=== PATIENT | female | born 1950 | race Caucasian/White ===

== ENCOUNTER 2025-03-09 10:24 | Outpatient (REF) | payer MEDICARE, SELFPAY ==
--- OUTSIDE RECORDS SUMMARY | 2025-03-07 09:00 | XMS_ITS | Encounter Summary ---
Author Organization [email or web address] Address [address] [facility] [address] [place] [address] Care Team Providers Care Commissary Steward Name Role Phone Rene Butcher MD Primary Care Prov ider Encounter Details Date Type Department Care Team ([facility] Contact Info) Description 03/07/2025 9:00 AM EDT Telemedicine [facility] [address], [place] [phone] Rene Butcher MD [address] [place], [place] [phone] Social History Tobacco Use Types Packs/Day Years Used Date Smoking Tobacco: Never Smokeless Tobacco: Never Depression Answer Date Recorded Patient Health Questionnaire-9 Score 4 04/05/2024 Patient Health Questionnaire-9 Score 4 04/05/2024 Last PHQ-9: Questionnaire Data Not on file 1 06/05/2023 Housing Stability Answer Date Recorded What is your housing situation today? I have kelly victor 04/05/[address] you li ve. Do you have problems with any of the following? None of the above 04/05/2024 Food Insecurity Answer Date Recorded Within the past 12 months, y ou worried that your food would run out before you got money to buy more: Never True 04/05/2024 Within the past 12 months,th e food you bought just didn't last and you didn't have enough money to get more: Never True 04/2024 Transportation Answer Date Recorded In the past 12 months, has l ack of transportation kept you from medical appts, meetings, work or from getting things needed for daily living? No 04/05/2024 Utilities Answer Date Recorded In the past 12 months, has t he electric, gas, oil or water company threatened to shut off services in your home? No 04/05/2024 Depression Answer Date Recorded Patient Health Questionnaire-2 Score 4 04/05/2024 Internet Access Answer Date Recorded Internet Access Q1 Yes 04/05/2024 Internet Access Q2 Not on file 04/05/2024 Comments Unknown Sex and Gender Information Value Date Recorded Sex Assigned at Female 03/24/2022 10:29 AM EDT Legal Sex Female 10:29 AM EDT Gender Identity Female 03/24/2022 10:29 AM EDT Sexual Orientation Don't know 03/24/2022 10 :29 AM EDT documented as of this encounter Plan of Treatment Upcoming Encounters Date Type Department Care Team (Late st Contact Info) Description 03/13/2025 10:30 AM EDT Clinical Support [facility] [address] [place] [address] 03/14/2025 11:00 AM EDT Office Visit [facility] [address] [place] [address] Donnie Quevedo, DMD [address] [place] [address] 07/04/2025 2:00 PM EST Office Visit [facility] [address] [place] [address] Tarka, Merissa, OD [address] [place] [address] documented as of this encounter Visit Diagnoses Not on filedocumented in this encounter Additional Health Concerns Assessment Noted Time PHQ-9 Depression Total Score: 4 04/05/20 24 11:56 AM EST documented as of this encounter Care Teams Commissary Steward Relationship Specialty Start Date End Date Rene Butcher MD [address] [place] [address] PCP - General Internal Medicine 10/23/19 documented as of this encounter
--- NOTE | ~2025-03-09 | CT_ITS ---
EXAMINATION: CT HEAD WITHOUT IV CONTRAST HISTORY: Persistent headache after a fall more than 2 months ago.. TECHNIQUE: Unenhanced helical CT of the head was performed per standard departmental protocol. Coronal and sagittal reformats of the head were also evaluated. One or more of the following techniques was used for dose reduction: Automated exposure control, adjustment of the mA and/or kV according to patient size, use of iterative reconstruction technique. DLP: 657 mGy-cm COMPARISON: There are no prior studies available for comparison. FINDINGS: BRAIN: There is diffuse prominence of the ventricular system and cortical sulci, consistent with atrophy. Periventricular and subcortical white matter hypodensities are noted which are nonspecific, but often seen in the setting of small vessel ischemic disease. There is no mass effect or midline shift. No intra- or extra-axial fluid collections are identified. SINUSES: The visualized paranasal sinuses are clear. The mastoid air cells and middle ear cavities are well pneumatized. ORBITS: The visualized orbits are unremarkable. BONES/SOFT TISSUES: The extracranial soft tissues are unremarkable. The calvarium is intact. No suspicious lytic or sclerotic lesions. CT/CT head/brain wo IV con IMPRESSION: No evidence of intracranial hemorrhage. Electronically signed by: Francisco Javier Aguilar MD 03/09/2025 10:56 AM EDT
--- NOTE | ~2025-03-09 | XR_ITS ---
EXAMINATION: XR LUMBAR SPINE 2-3 VIEWS HISTORY: Low back pain after a fall. COMPARISON: There are no prior studies for comparison. FINDINGS: AP, lateral, and coned down views of the lumbar spine are submitted. The bones are osteopenic. Five nonrib-bearing lumbar vertebral bodies are identified, maintaining normal height and alignment without evidence of fracture or spondylolisthesis. There is mild degenerative disc disease with lateral spurring. The intervertebral disc spaces are maintained. The posterior elements are intact. There is calcification of the abdominal aorta. Incidental note is made of osteoarthritis of both hips. XR/XR lumbar spine 2-3V IMPRESSION: Osteopenia. Mild degenerative disc disease as described. Electronically signed by: Francisco Javier Aguilar MD 03/09/2025 11:07 AM EDT
--- OUTSIDE RECORDS SUMMARY | 2025-03-09 12:51 | XMS_ITS | Encounter Summary ---
Author Organization [employer] Address [address] [facility] [address] [place] [address] Care Team Providers Care Sports Broadcaster Name Role Phone Rene Butcher MD Primary Care Prov ider Reason for Visit * Reason Comments Med Refill Encounter Details Date Type Department Care Team ([facility] st Contact Info) Description 01/14/2025 Refill [facility] [address] [place] [address] Rene Butcher MD [address] [place], [place] [phone] Arthritis Social History Tobacco Use Types Packs/Day Years [...] Description 03/13/2025 10:30 AM EDT Clinical Support [facility] [address] [place] [address] 03/14/2025 11:00 AM EDT Office Visit [facility] [address] [place] [address] Donnie Quevedo, DMD [address] [place] [address] 07/04/2025 2:00 PM EST Office Visit [facility] [address] [place] [address] Tarka, Merissa, OD [address] [place] [address] documented as of this encounter Visit Diagnoses Diagnosis Arthritis Unspecified arthropathy, site unspecified documented in this encounter Additional Health Concerns Assessment Noted Time PHQ-9 Depression Total Score: 4 04/05/20 24 11:56 AM EST documented as of this encounter Care Teams Sports Broadcaster Relationship Specialty Start Date End Date Rene Butcher MD [address] [place] [address] PCP - General Internal Medicine 10/23/19 documented as of this encounter
--- OUTSIDE RECORDS SUMMARY | 2025-03-09 12:51 | XMS_ITS | Clinical Summary ---
Author Organization [employer] Address [address] [facility] [address] [place] [address] Care Team Providers [employer] Name Role Phone Rene Butcher MD Primary Care Prov ider Allergies Active Allergy Reactions Criticality Noted Date Comments Apple Juice Anaphylaxis High 10/09/2022 Ross Flavoring Agent (Non-Screening) Anaphylaxis High 12/30/2022 Medications * This document contains information received from the source organization and may not represent a complete record from that organization. Blood Pressure kit 1 kit Once per day. 1 kit 10/15/19 24 Active cholecalciferol VITAMIN D (Vitamin D-3) 50 MCG (1999 UT) tabletIndicatio ns:Gastroesopha geal reflux disease without esophagitis Take 1 tablet (50 mcg) by mouth in the morning. 90 tablet 2 04/05/20 24 025 Active cetirizine (ZyrTEC) 10 MG tabletIndicatio ns:Chronic rhinitis Take 1 tablet (10 mg) by mouth Once per day. 90 tablet 3 04/05/20 24 025 Active PARoxetine (Paxil) 40 MG tabletIndicatio ns:Recurrent major depressive disorder, in full remission (CMS/HCC) Take 1 tablet (40 mg) by mouth in the morning. 90 tablet 3 04/05/20 24 025 Active aspirin (Aspirin Low Dose) 81 MG EC tabletIndicatio ns:Gastroesopha geal reflux disease without esophagitis Take 1 tablet (81 mg) by mouth Once per day. 90 tablet 3 10/19/19 25 026 Active hydroCHLOROthia zide (HYDRODiuril) 25 MG tablet TAKE 1 TABLET BY MOUTH EVERY DAY 90 tablet 3 10/19/19 25 Active hydrOXYzine HCl (Atarax) 25 MG tabletIndicatio ns:Arthritis Take 1 tablet (25 mg) by mouth if needed in the morning, at noon, and at bedtime for anxiety. 90 tablet 3 10/19/19 25 Active acetaminophen (Tylenol 8 Hour) 650 MG ER tabletIndicatio ns:Arthritis Take 1 tablet (650 mg) by mouth every 8 (eight) hours if needed for mild pain. Do not crush, chew, or split.TAKE 1 TABLET BY MOUTH EVERY 8 HOURS IF NEEDED FOR MILD PAIN. DO NOT CRUSH,CHEW OR SPIT. 90 tablet 1 10/19/19 25 Active losartan (Cozaar) 100 MG tabletIndicatio ns:Other headache syndrome take 1 tablet by oral route 2 times every day 30 tablet 3 02/21/20 25 Active pantoprazole (ProtoNix) 40 MG EC tabletIndicatio ns:Gastroesopha geal reflux disease without esophagitis Take 1 tablet (40 mg) by mouth Once per day. Do not crush, chew, or split. 90 tablet 3 02/21/20 25 026 Active Blood Pressure Monitoring (Omron 10 Series BP Monitor) deviceIndicatio ns:Primary hypertension CHECK BLOOD PRESSURE DAILY 1 each 02/21/20 25 Active EPINEPHrine (Epipen) 0.3 MG/0.3ML injection syringe Inject 0.3 mL (0.3 mg) as directed 1 (one) time for 1 dose. use as directed for allergic reaction and then call 911 0.3 mL 12/31/19 025 Discontinued(T herapy completed) pantoprazole (ProtoNix) 40 MG EC tabletIndicatio ns:Gastroesopha geal reflux disease without esophagitis Take 1 tablet (40 mg) by mouth Once per day. Do not crush, chew, or split. 90 tablet 3 04/05/20 24 025 Discontinued(R eorder (will not trigger notification to Pharmacy)) pseudoephedrine (Sudafed) 30 MG tablet Take 1 tablet (30 mg) by mouth every 4 (four) hours if needed for congestion for up to 10 days. 30 tablet 08/18/19 25 025 Discontinued(T herapy completed) Blood Pressure Monitoring (Omron 10 Series BP Monitor) device CHECK BLOOD PRESSURE DAILY 1 each 08/23/19 025 Discontinued(R eorder (will not trigger notification to Pharmacy)) losartan (Cozaar) 50 MG tablet take 1 tablet by oral route 2 times every day 180 tablet 3 10/19/19 025 Discontinued(R eorder (will not trigger notification to Pharmacy)) Active Problems Problem Noted Date Diagnosed Date Morbid obesity (CMS/HCC) 04/05/2024 Gastroesophageal reflux disease without esophagi tis 04/05/2024 Assessment & Plan (04/05/2024 6:09 PM EST): Will restart pantoprazole, encouraged lifestyle modifications, follow up as needed, no warning signs Screening for colon cancer 04/02/2023 Assessment & Plan (04/02/2023 3:35 PM EST): Done 01/2017 due in 10 years Anxiety 03/17/2023 Assessment & Plan (10/15/2023 4:46 PM EDT): On paroxetine and hydroxyzine, no suicidal ideas, she will be traveling to [facility]] for 3 months and will call back for follow up Assessment & Plan (04/02/2023 6:11 PM EST): Much improved with increase of paroxetine and hydroxyzine as needed, no changes will be made, no suicidal/homicidal ideas Assessment & Plan (03/17/2023 4:24 PM EDT): Patient refers household family situations are causing her exacerbation, will increase paroxetine to 40mg and will provide hydroxyzine as needed, will also refer to , no suicidal/homicidal ideas Allergic reaction 12/30/2022 Assessment & Plan (12/30/2022 11:22 AM EDT): Patient with hx of apple allergies, had a peach yesterday and developed puffy eyes, itchy throat, denied shortness of breath. On examination no rash seen, not fatigue, speaking in full sentences, clear to auscultation bilaterally, will order benadryl/epipen and will refer to sole filler. Reviewed red flags to visit ER. Chronic rhinitis 08/11/2022 Assessment & Plan (08/11/2022 12:04 PM EDT): Cough bothering her in the morning, most likely post nasal drip, will order cetirizine, call back if worseing Primary hypertension 06/23/2022 Assessment & Plan (10/15/2023 4:44 PM EDT): Patient not monitoring her blood pressure, refers bp monitor is broken, will send a new one to [facility], continue low sodium diet, bp target <140/90 Assessment & Plan (06/23/2022 10:30 AM EST): Controlled, reinforced low sodium diet and exercsie as tolerated, continue on losartan and hydrochlorothiazide, will place new lab order Encounter for screening mamm ogram for malignant neoplasm of breast 06/23/2022 Assessment & Plan (06/23/2022 10:34 AM EST): Will order mammogram Tinea pedis of both feet 06/23/2022 Assessment & Plan (08/11/2022 12:03 PM EDT): Patient with bilateral toenail/intertoe infection, will provide clotrimazole, told to maintain area dry Menopause 06/23/2022 Assessment & Plan (06/23/2022 10:35 AM EST): Will place dexa scan order Encounters Date Type Department Care Team Description 03/08/2025 Telephone [facility] [address] [place] [address] Rene Butcher MD 03/07/2025 9:00 AM EDT Telemedicine [facility] [address] [place] [address] Rene Butcher MD 03/07/2025 Telephone [facility] [address] [place] [address] Rene Butcher MD chart prep 03/07/2025 Telephone [facility] [address] [place] [address] Rene Butcher MD 03/06/2025 Telephone [facility] [address] [place] [address] Rene Butcher MD 03/06/2025 Travel 03/03/2025 Telephone [facility] [address] [place] [address] Rene Butcher MD chart prep 03/01/2025 2:00 PM EDT Office Visit [facility] [address] [place] [address] Donnie Quevedo DMD Edentulism (Primary Dx) 02/21/2025 9:00 AM EDT Office Visit [facility] [address] [place] [address] Reese Rojas Edentulism (Primary Dx) 02/20/2025 11:30 AM EDT Office Visit [facility] [address] [place] [address] Jenny Rojas MD Acute cough (Primary Dx); Other headache syndrome; Dietary counseling; Exercise counseling; Class 1 obesity due to excess calories with serious comorbidity and body mass index (BMI) of 33.0 to 33.9 in adult; Acute midline low back pain without sciatica; Gastroesophageal reflux disease without esophagitis; Primary hypertension 02/20/2025 Travel 02/16/[address] [address] Rene Butcher MD Nurse Triage 01/14/2025 Refill [facility] [address] [place] [id number] Rene Butcher MD Arthritis from Last 3 Months Immunizations Immunization Administration Dates Next Due Influenza High-dose Quadriva lent Preservative Free 02/24/2022,01/27/2021,03/20/2020 Influenza injectable quadriv alent IIV4 with preservative 02/22/2018 Influenza, High Dose Seasona l, Preservative Free 01/27/2019,03/13/2016 Pfizer Covid-19 Vaccine 12+ 08/31/2020, Pneumococcal Conjugate PCV 13 02/22/2018 Pneumococcal Polysaccharide PPSV23 07/21/2016 Tdap 07/21/2016 Zoster, Recombinant 06/02/2022,12/30/2021 Social History Tobacco Use Types Packs/Day Years Used Date Smoking Tobacco: Never Smokeless Tobacco: Never Tobacco Cessation:Counseling Given: Not Answered Depression Answer Date Recorded Patient Health Questionnaire-9 [...] Don't know 03/24/2022 10 :29 AM EDT Last Filed Vital Signs Vital Sign Reading Time Taken Comments Blood Pressure 156/100 02/21/2025 9:09 AM EDT Pulse 78 02/21/2025 9:09 AM EDT Temperature 36.8 C (98.2 F) 02/20/2025 11:22 AM EDT Respiratory Rate 20 02/20/2025 11:22 AM EDT Oxygen Saturation 94% 02/20/2025 11:22 AM EDT Inhaled Oxygen Concentration - - Weight 77.1 kg (170 lb) 08/17/2024 3:23 PM EDT Height 152.4 cm (5') 04/05/2024 11:55 AM EST Body Mass Index 33.2 04/05/2024 11:55 AM EST Plan of Treatment Upcoming Encounters Date Type Department Care Team (Late st Contact Info) Description 03/13/2025 10:30 AM EDT Clinical Support [facility] [address] [place] [address] 03/14/2025 11:00 AM EDT Office Visit [facility] [address] [place] [address] Donnie Quevedo, DMD [address] [place] [address] 07/04/2025 2:00 PM EST Office Visit [facility] [address] [place] [address] TarkaMerissa, OD [address] [place] [address] Health Maintenance Due Date Last Done Comments CT Colonography 1950 Dental Prophylaxis 1950 Dental X-Ray: Bitewings 1950 FIT DNA/Cologuard 1950 FIT 1950 FOBT 1950 Sigmoidoscopy 1950 Hepatitis C Screening 1969 Mammogram 1991 COVID-19 Vaccine ( season) 2025 02/24/2022, 08/31/2020, 08/10/2020 Influenza Vaccine (#1) 2025 2, 01/27/2021, 03/20/2020, Additional history exists Alcohol/Substance Use Screening 04/05/2025 04/05/2024 Depression Screening 04/05/2025 04/05/2024, 04/05/20 24 SDOH Screening 04/05/2025 04/05/2024 Dental Oral Exam 08/22/2025 02/21/2025 RSV Patients and Patients Aged 60 years or older (1 - 1-dose 75+ series) 2026 Tobacco Screening 03/01/2026 03/01/2025 DTaP/Tdap/Td Vaccines (3 - Td or Tdap) 07/21/2026 07/21/2016, 10/24/2010 Lipid Panel 12/30/2026 12/30/2021, 03/18/2021 Colonoscopy 02/10/2027 02/10/2017 Colorectal Cancer Screening 02/10/2027 Dental X-Ray: Full Mouth 02/23/2028 02/21/2025 Pneumococcal Vaccine: 50+ Years Completed 02/22/2018, 07/21/2016 Zoster Vaccines Completed 06/02/2022, 12/30/2021 HIB Vaccines Aged Out No longer eligi ble based on patient's age to complete this topic HPV Vaccines Aged Out No longer eligi ble based on patient's age to complete this topic Hepatitis A Vaccines Aged Out No long er eligible based on patient's age to complete this topic Hepatitis B Vaccines Aged Out No long er eligible based on patient's age to complete this topic IPV Vaccines Aged Out No longer eligi ble based on patient's age to complete this topic Meningococcal B Vaccine Aged Out No l onger eligible based on patient's age to complete this topic Meningococcal Vaccine Aged Out No yoandy kori eligible based on patient's age to complete this topic RSV under 20 months Aged Out No longe r eligible based on patient's age to complete this topic Rotavirus Vaccines Aged Out No longer eligible based on patient's age to complete this topic Procedures Procedure Name Priority Date/Time Associated Diagnosis Comments XR LUMBAR SPINE 2-3 VIEWS Routine 03/09/2025 10:45 AM EDT Acute midline low back pain without sciatica CT HEAD WO CONTRAST Urgent 03/09/2025 1 0:39 AM EDT Other headache syndrome DENTURE IMPRESSION Routine 03/01/2025 2: 00 PM EDT Edentulism PANORAMIC RADIOGRAPHIC IMAGE Routine 02/21/2025 9:00 AM EDT Edentulism COMPREHENSIVE ORAL EVALUATION - NEW OR ESTABLISHED PATIENT Routine 02/21/2025 9:00 AM EDT Edentulism Jorge A COMPLETE DENTURE Routine 02/21/2025 12:00 AM EDT Max COMPLETE DENTURE Routine 02/21/2025 12:00 AM EDT POCT RAPID COVID ANTIGEN Routine 02/20/2025 1:53 PM EDT Acute cough POCT INFLUENZA A Routine 02/20/2025 1:52 PM EDT Acute cough POCT INFLUENZA B Routine 02/20/2025 1:51 PM EDT Acute cough POCT RAPID STREP A Routine 02/20/2025 1: 50 PM EDT Acute cough LIPID PANEL, STANDARD Routine 12/30/2021 9:11 AM EDT HM COLONOSCOPY Routine 02/10/2017 9:53 AM EDT from Last 3 Months or Most Recently Relevant to Health Maintenance Results * XR Lumbar Spine 2-3 Views (03/09/2025 10:45 AM EDT) Anatomical Region Laterality Modality Spine, L-spine Radiographic Laureen ging 03/09/2025 10:4 5 AM EDT Narrative 03/09/2025 11:10 AM EDT [place] [address] XRay Report Signed Patient: Negar Moreno MR#: [id number] : 1950 Acct:[id number] Age/Sex: 75 / F ADM Date: 03/09/25 Loc: HO.CT Attending Dr: Jenny Rojas MD Ordering Physician: Jenny Rojas MD Date of Service: 03/09/25 Procedure(s): XR lumbar spine 2-3V Accession Number(s): [id number] cc: Jenny Rojas MD Reason for Exam: Low back pain after a fall. EXAMINATION: XR LUMBAR SPINE 2-3 VIEWS HISTORY: Low back pain after a fall. COMPARISON: There are no prior studies for comparison. FINDINGS: AP, lateral, and coned down views of the lumbar spine are submitted. The bones are osteopenic. Five nonrib-bearing lumbar vertebral bodies are identified, maintaining normal height and alignment without evidence of fracture or spondylolisthesis. There is mild degenerative disc disease with lateral spurring. The intervertebral disc spaces are maintained. The posterior elements are intact. There is calcification of the abdominal aorta. Incidental note is made of osteoarthritis of both hips. XR/XR lumbar spine 2-3V IMPRESSION: Osteopenia. Mild degenerative disc disease as described. Electronically signed by: Francisco Javier Aguilar MD 03/09/2025 11:07 AM EDT RP Dictated By: Francisco Javier Aguilar MD Signed By: <Electronically signed by Francisco Javier Aguilar MD in OV> 03/09/25 1107 DD/ 1045 TD/TT: 03/09/25 1100 Spud Sorter: Procedure Note Donotuseinterpreter, Image - 03/09/2025 [place] [address] XRay Report Signed Patient: Negar Moreno [facility]#: [id number] : 1950cct:[id number] Age/Sex: 75 / FADM Date: 03/09/25 Loc: HO.CT Attending Dr: Jenny Rojas MD Ordering Physician: Jenny Rojas MD Date of Service: 03/09/25 Procedure(s): XR lumbar spine 2-3V Accession Number(s): [id number] cc: Jenny Rojas MD Reason for Exam: Low back pain after a fall. EXAMINATION: XR LUMBAR SPINE 2-3 VIEWS HISTORY: Low back pain after a fall. COMPARISON: There are no prior studies for comparison. FINDINGS: AP, lateral, and coned down views of the lumbar spine are submitted. The bones are osteopenic. Five nonrib-bearing lumbar vertebral bodies are identified, maintaining normal height and alignment without evidence of fracture or spondylolisthesis. There is mild degenerative disc disease with lateral spurring. The intervertebral disc spaces are maintained. The posterior elements are intact. There is calcification of the abdominal aorta. Incidental note is made of osteoarthritis of both hips. XR/XR lumbar spine 2-3V IMPRESSION: Osteopenia. Mild degenerative disc disease as described. Electronically signed by: Francisco Javier Aguilar MD 03/09/2025 11:07 AM EDT Dictated By: Francisco Javier Aguilar MD Signed By: <Electronically signed by Francisco Javier Aguilar MD in OV> 03/09/25 1107 DD/ 1045 TD/TT: 03/09/25 1100 Spud Sorter: Jenny Rojas MD IMG XR PROCEDURES Edited Re sult - Final * CT Head w/o Contrast (03/09/2025 10:39 AM EDT) Anatomical Region Laterality Modality Head, Neck Computed Tomogra phy 03/09/2025 10:3 9 AM EDT Narrative 03/09/2025 10:58 AM EDT [place] [address] CT Scan Report Signed Patient: Negar Moreno MR#: [id number] : 1950 Acct:[id number] Age/Sex: 75 / F ADM Date: 03/09/25 Loc: HO.CT Attending Dr: Jenny Rojas MD Ordering Physician: Jenny Rojas MD Date of Service: 03/09/25 Procedure(s): CT head/brain wo IV con Accession Number(s): [id number] cc: Jenny Rojas MD Report Number: [id number]: Total DLP = 657.00 mGy-cm Reason for Exam: Persistent headache after a fall more than 2 months ago. EXAMINATION: CT HEAD WITHOUT IV CONTRAST HISTORY: Persistent headache after a fall more than 2 months ago.. TECHNIQUE: Unenhanced helical CT of the head was performed per standard departmental protocol. Coronal and sagittal reformats of the head were also evaluated. One or more of the following techniques was used for dose reduction: Automated exposure control, adjustment of the mA and/or kV according to patient size, use of iterative reconstruction technique. DLP: 657 mGy-cm COMPARISON: There are no prior studies available for comparison. FINDINGS: BRAIN: There is diffuse prominence of the ventricular system and cortical sulci, consistent with atrophy. Periventricular and subcortical white matter hypodensities are noted which are nonspecific, but often seen in the setting of small vessel ischemic disease. There is no mass effect or midline shift. No intra- or extra-axial fluid collections are identified. SINUSES: The visualized paranasal sinuses are clear. The mastoid air cells and middle ear cavities are well pneumatized. ORBITS: The visualized orbits are unremarkable. BONES/SOFT TISSUES: The extracranial soft tissues are unremarkable. The calvarium is intact. No suspicious lytic or sclerotic lesions. CT/CT head/brain wo IV con IMPRESSION: No evidence of intracranial hemorrhage. Electronically signed by: Francisco Javier Aguilar MD 03/09/2025 10:56 AM EDT RP Dictated By: Francisco Javier Aguilar MD Signed By: <Electronically signed by Francisco Javier Aguilar MD in OV> 03/09/25 1056 DD/ 1039 TD/TT: 03/09/25 1045 Spud Sorter: Procedure Note Donotuseinterpreter, Image - 03/09/[address] [place] [address] [address] Scan Report Signed Patient: Negar Moreno [facility]#: [id number] : 1950cct:[id number] Age/Sex: 75 / FADM Date: 03/09/25 Loc: HO.CT Attending Dr: Jenny Rojas MD Ordering Physician: Jenny Rojas MD Date of Service: 03/09/25 Procedure(s): CT head/brain wo IV con Accession Number(s): [id number] cc: Jenny Rojas MD Report Number: [id number]: Total DLP = 657.00 mGy-cm Reason for Exam: Persistent headache after a fall more than 2 months ago. EXAMINATION: CT HEAD WITHOUT IV CONTRAST HISTORY: Persistent headache after a fall more than 2 months ago.. TECHNIQUE: Unenhanced helical CT of the head was performed per standard departmental protocol. Coronal and sagittal reformats of the head were also evaluated. One or more of the following techniques was used for dose reduction: Automated exposure control, adjustment of the mA and/or kV according to patient size, use of iterative reconstruction technique. DLP: 657 mGy-cm COMPARISON: There are no prior studies available for comparison. FINDINGS: BRAIN: There is diffuse prominence of the ventricular system and cortical sulci, consistent with atrophy. Periventricular and subcortical white matter hypodensities are noted which are nonspecific, but often seen in the setting of small vessel ischemic disease. There is no mass effect or midline shift. No intra- or extra-axial fluid collections are identified. SINUSES: The visualized paranasal sinuses are clear. The mastoid air cells and middle ear cavities are well pneumatized. ORBITS: The visualized orbits are unremarkable. BONES/SOFT TISSUES: The extracranial soft tissues are unremarkable. The calvarium is intact. No suspicious lytic or sclerotic lesions. CT/CT head/brain wo IV con IMPRESSION: No evidence of intracranial hemorrhage. Electronically signed by: Francisco Javeir Aguilar MD 03/09/2025 10:56 AM EDT Dictated By: Francisco Javier Aguilar MD Signed By: <Electronically signed by Francisco Javier Aguilar MD in OV> 03/09/25 1056 DD/ 1039 TD/TT: 03/09/25 1045 Spud Sorter: Jenny Rojas MD IM CT PROCEDURES Edited Re sult - Final * POCT Rapid Covid-19 BinaxNOW (02/20/2025 1:53 PM EDT) [facility] Rapid COVID Ag Negative QC Media Lot # [id number] Lot# Expiration Date 503 Swab 02/20/2025 1:53 PM EDT Jenny Rojas MD POINT OF CARE TEST ENTER/ED IT ORDERABLES Final Result * POCT Rapid Influenza A OSOM (02/20/2025 1:52 PM EDT) [facility] Rapid Influenza A Ag Negative Negative, Indeterminate QC Media Lot # [id number] Lot# Expiration Date Comment:controls passed Swab Nasopharyngeal structure / Unknown 02/20/2025 1:52 PM EDT Result [facility] Jenny Rojas MD POINT OF CARE TEST ENTER/ED IT ORDERABLES Final Result * POCT Rapid Influenza B OSOM (02/20/2025 1:51 PM EDT) [facility] Rapid Influenza B Ag Negative Negative, Indeterminate QC Media Lot # [id number] Lot# Expiration Date Comment:controls passed Swab 02/20/2025 1:51 PM EDT Result [facility] Jenny Rojas MD POINT OF CARE TEST ENTER/ED IT ORDERABLES Final Result * POCT Rapid Strep A OSOM (02/20/2025 1:50 PM EDT) [facility] Rapid Strep A Screen Negative Negative, None Detected QC Media Lot # [id number] Lot# Expiration Date ,025 Comment:controls passed Swab 02/20/2025 1:50 PM EDT Jenny Rojas MD POINT OF CARE TEST ENTER/ED IT ORDERABLES Final Result * (ABNORMAL) LIPID PANEL, STANDARD (12/30/2021 9:11 AM EDT) [facility] Chol/HDLC Ratio 5.3(H) <5.0 (calc) [facility] Cholesterol, Total 186 <200 mg/dL [facility] HDL Cholesterol 35(L) > OR = 50 mg/dL [facility] LDL Cholesterol 100(H) mg/dL (calc) [facility] Comment: Reference range: <100 Desirable range <100 mg/dL for primary prevention; <70 mg/dL for patients with CHD or diabetic patients with > or = 2 CHD risk factors. LDL-C is now calculated using the Cuauhtemoc-Hussein calculation, which is a validated novel method providing better accuracy than the Friedewald equation in the estimation of LDL-C. Cuauhtemoc SS et al. RAMOS. 2013;310(19): 9219-2318 (http://education.Pharmapod.OptionEase/faq/AEG101) Non-HDL Cholesterol 151(H) <130 mg/dL (calc) [facility] Comment: For patients with diabetes plus 1 major ASCVD risk factor, treating to a non-HDL-C goal of <100 mg/dL (LDL-C of <70 mg/dL) is considered a therapeutic option. Triglycerides 386(H) <150 mg/dL [facility] Comment: If a non-fasting specimen was collected, consider repeat triglyceride testing on a fasting specimen if clinically indicated. Laura et al. J. of Clin. Lipidol. 2015;9:129-169. 12/30/2021 9:11 AM EDT Rene Nash MD LAB BLOOD ORDERABL ES Final Result [facility] [address] * Hm Colonoscopy (02/10/2017 9:53 AM EDT) Historical Provider HEALTH MAINTENANCE Final Result from Last 3 Months or Most Recently Relevant to Health Maintenance Insurance # 1 [place] [address] [facility] STANDARD [place] [address] DENTAL - HSN FULL (MEDICAID) DENTAL - [employer] MEDICARE [place] [id number] Care Teams [employer] Relationship Specialty Start Date End Date Rene Butcher MD [address] [place] [id number] PCP - General Internal Medicine 10/23/19
--- OUTSIDE RECORDS SUMMARY | 2025-03-09 12:51 | XMS_ITS | Encounter Summary ---
Author Organization [employer] Address [address] [facility] 7 [place] [address] Care Team Providers Care Residential Leasing Manager Name Role Phone Rene Butcher MD Primary Care Prov ider Reason for Visit * Reason Onset Date Comments Medication Question 05/03/2024 Encounter Details Date Type Department Care Team ([facility] Contact Info) Description 05/03/2024 Telephone [facility] CHC MED & PEDS [address] [place], [place] [phone] Rene Butcher MD 505 [place] [address] Medication Question Social History Tobacco Use Types Packs/Day Years [...] AM EDT documented as of this encounter Miscellaneous Notes * Telephone Encounter - Ciara Johnson RN - 05/12/2024 11:21 AM EST TC to patient via Kyrgyz chain carrier ([id number]). Message left for patient to return call to [facility]. * Telephone Encounter - Paula Frey - 05/03/2024 1:09 PM EST Tc from pt requesting a call back to go over pt medication . States called [facility] but they are not trying to fill pt medication due to insurance issue. Please call to clarify. documented in this encounter Plan of Treatment Upcoming Encounters Date Type Department Care Team (Late st Contact Info) Description 03/13/2025 10:30 AM EDT Clinical Support [facility] MED & PEDS [address] [place] [address] 03/14/2025 11:00 AM EDT Office Visit [facility] ADULT DENTAL [address] [place] [address] Donnie Quevedo, GAURAV 505 [place] [address] 07/04/2025 2:00 PM EST Office Visit [facility] OPTOMETRY [address] [place] [address] William Merissa, OD [address] [place] [address] documented as of this encounter Visit Diagnoses Not on filedocumented in this encounter Additional Health Concerns Assessment Noted Time PHQ-9 Depression Total Score: 4 04/05/20 24 11:56 AM EST documented as of this encounter Care Teams Residential Leasing Manager Relationship Specialty Start Date End Date Rene Butcher MD [address] [place] [address] PCP - General Internal Medicine 10/23/19 documented as of this encounter
--- OUTSIDE RECORDS SUMMARY | 2025-03-09 12:51 | XMS_ITS | Encounter Summary ---
Author Organization [employer] Address 75 [facility] 7 [place] [address] Care Team Providers Care Video Clerk Name Role Phone Rene Butcher MD Primary Care Prov ider Reason for Visit * Reason Comments Med Refill Encounter Details Date Type Department Care Team ([facility] Contact Info) Description 07/24/2023 Refill [facility] CHC MED & PEDS [address] [place], [place] [phone] Jenny Rojas MD 505 [place] [address] Arthritis Social History Tobacco Use Types Packs/Day Years Used Date Smoking Tobacco: Never Smokeless Tobacco: Never Depression Answer Date Recorded Patient Health Questionnaire-9 Score 0 06/23/2022 Housing Stability Answer Date Recorded What is your housing situation today? I have kelly victor 03/09/[address] you li ve. Do you have problems with any of the following? None of the above 03/09/2023 Food Insecurity Answer Date Recorded Within the past 12 months, y ou worried that your food would run out before you got money to buy more: Never True 03/09/2023 Within the past 12 months,th e food you bought just didn't last and you didn't have enough money to get more: Never True Transportation Answer Date Recorded In the past 12 months, has l ack of transportation kept you from medical appts, meetings, work or from getting things needed for daily living? No 03/09/2023 Utilities Answer Date Recorded In the past 12 months, has t he electric, gas, oil or water company threatened to shut off services in your home? No 03/09/2023 Depression Answer Date Recorded Patient Health Questionnaire-2 Score 0 06/23/2022 Comments Unknown Sex and Gender Information Value [...] Description 03/13/2025 10:30 AM EDT Clinical Support [facility] MED & PEDS 505 [place] [address] 03/14/2025 11:00 AM EDT Office Visit [facility] ADULT DENTAL 505 [place] [address] Donnie Quevedo, DMD 505 [place] [address] 07/04/2025 2:00 PM EST Office Visit [facility] OPTOMETRY [address] [place] [address] Tarka, Merissa, OD 267 [place] [address] documented as of this encounter Visit Diagnoses Diagnosis Arthritis Unspecified arthropathy, site unspecified documented in this encounter Additional Health Concerns Assessment Noted Time PHQ-9 Depression Total Score: 0 06/23/19 23 10:25 AM EST documented as of this encounter Care Teams Video Clerk Relationship Specialty Start Date End Date Rene Butcher MD 505 [place] [address] PCP - General Internal Medicine 10/23/19 documented as of this encounter
--- OUTSIDE RECORDS SUMMARY | 2025-03-09 12:51 | XMS_ITS | Encounter Summary ---
Author Organization [employer] Address [address] [facility] 7t [place] [address] Care Team Providers Care Gas Fitter Apprentice Name Role Phone Rene Butcher MD Primary Care Prov ider Encounter Details Date Type Department Care Team ([facility] Contact Info) Description 03/08/2025 Telephone C CHC MED & PEDS [address] [place], [place] [phone] Rene Butcher MD 505 [place] [address] Social History Tobacco Use Types Packs/Day Years [...] t he electric, gas, oil or water [employer] threatened to shut off services in your [...] encounter Miscellaneous Notes * Telephone Encounter - Rene Nash MD - 03/08/2025 10:15 AM EDT Patient was called x3 with diplomatic interpreter/translator, line was busy, will reschedule appointment documented in this encounter Plan of Treatment Upcoming Encounters Date Type Department Care Team (Late st Contact Info) Description 03/13/2025 10:30 AM EDT Clinical Support [facility] MED & PEDS 505 [place] [address] 03/14/2025 11:00 AM EDT Office Visit [facility] ADULT DENTAL [address] [place] [address] Donnie Quevedo, DMD 505 [place] [address] 07/04/2025 2:00 PM EST Office Visit [facility] OPTOMETRY [address] [place] [address] TarkaMerissa, OD [address] [place] [address] documented as of this encounter Visit Diagnoses Not on filedocumented in this encounter Additional Health Concerns Assessment Noted Time PHQ-9 Depression Total Score: 4 04/05/20 24 11:56 AM EST documented as of this encounter Care Teams Gas Fitter Apprentice Relationship Specialty Start Date End Date Rene Butcher MD [address] [place] [address] PCP - General Internal Medicine 10/23/19 documented as of this encounter
--- OUTSIDE RECORDS SUMMARY | 2025-03-09 12:51 | XMS_ITS | Encounter Summary ---
Author Organization [employer] Address 75 [facility] 7t [place] [address] Care Team Providers Care Cook Helper Preserves Name Role Phone Rene Butcher MD Primary Care Prov ider Encounter Details Date Type Department Care Team ([facility] Contact Info) Description 03/07/2025 Telephone C CHC MED & PEDS 505 [place], [place] [phone] Rene Butcher MD 505 [place] [address] Social History Tobacco Use Types Packs/Day Years [...] t he electric, gas, oil or water [employer] threatened to shut off services in your [...] Telephone Encounter - Rene Nash MD - 03/07/2025 9:03 AM EDT Patient was called with rope walker, line was busy, he was unable to leave a VM, will reschedule appointment documented in this encounter Plan of Treatment Upcoming Encounters Date Type Department Care Team (Late st Contact Info) Description 03/13/2025 10:30 AM EDT Clinical Support [facility] MED & PEDS 505 [place] [address] 03/14/2025 11:00 AM EDT Office Visit [facility] ADULT DENTAL 505 [place] [address] Donnie Quevedo, DMD 505 [place] [address] 07/04/2025 2:00 PM EST Office Visit [facility] OPTOMETRY 267 [place] [address] TarkaMerisas, OD [address] [place] [address] documented as of this encounter Visit Diagnoses Not on filedocumented in this encounter Additional Health Concerns Assessment Noted Time PHQ-9 Depression Total Score: 4 04/05/20 24 11:56 AM EST documented as of this encounter Care Teams Cook Helper Preserves Relationship Specialty Start Date End Date Rene Butcher, MD [address] [place] [address] PCP - General Internal Medicine 10/23/19 documented as of this encounter
--- OUTSIDE RECORDS SUMMARY | 2025-03-09 12:51 | XMS_ITS | Encounter Summary ---
Author Organization [employer] Address 75 [facility] 7t [place] [address] Care Team Providers Care Block Hacker Name Role Phone Rene Butcher MD Primary Care Prov ider Reason for Visit * Reason Comments Med Refill Encounter Details Date Type Department Care Team ([facility] Contact Info) Description 07/14/2023 Refill [facility] CHC MED & PEDS [address] [place], [place] [phone] Rene Butcher MD [address] [place] [address] Recurrent major depressive disorder, in full remission (CMS/HCC) Social History Tobacco Use Types Packs/Day Years [...] the past 12 months, has t he [employer], gas, oil or water [employer] threatened to shut off services in your [...] Description 03/13/2025 10:30 AM EDT Clinical Support [facility] MED & PEDS [address] [place], [place] [phone] 03/14/2025 11:00 AM EDT Office Visit [facility] ADULT DENTAL [address] [place] [address] Donnie Quevedo, DMD 505 [place], [place] [phone] 07/04/2025 2:00 PM EST Office Visit [facility] OPTOMETRY [address] [place], [place] [phone] TarkaMerissa, OD [address] [place] [address] documented as of this encounter Visit Diagnoses Diagnosis Recurrent major depressive disorder, in full remission (CMS/HCC) documented in this encounter Additional Health Concerns Assessment Noted Time PHQ-9 Depression Total Score: 0 06/23/19 23 10:25 AM EST documented as of this encounter Care Teams Block Hacker Relationship Specialty Start Date End Date Rene Butcher MD [address] [place] [address] PCP - General Internal Medicine 10/23/19 documented as of this encounter
--- OUTSIDE RECORDS SUMMARY | 2025-03-09 12:51 | XMS_ITS | Encounter Summary ---
Author Organization [employer] Address [address] [facility] [address] 7t [place] [address] Care Team Providers Care Deputy Commissioner Name Role Phone Rene Butcher MD Primary Care Prov ider Encounter Details Date Type Department Care Team ([facility] Contact Info) Description 09/08/2023 Orders Only [facility] MEDICINE [address] [place], [place] [phone] ProviderShin MD Social History Tobacco Use Types Packs/Day Years Used Date Smoking Tobacco: Never Smokeless Tobacco: Never Depression Answer Date Recorded Patient Health Questionnaire-9 Score 0 06/23/2022 Housing Stability Answer Date Recorded What is your housing situation today? I have kellygarima victor 03/09/[address] you [...] [facility] [address] [place], [place] [phone] 03/14/2025 11:00 AM EDT Office Visit [facility] ADULT DENTAL [address] [place], [place] [phone] Sae Donnie, DMD 505 [place], [place] [phone] 07/04/2025 2:00 PM EST Office Visit [facility] OPTOMETRY [address] [place], [place] [phone] TarkaMerissa, OD 267 [place] [address] documented as of this encounter Procedures Procedure Name Priority Date/Time Associated Diagnosis Comments HM COLONOSCOPY Routine 02/10/2017 9:53 AM EDT documented in this encounter Results * Hm Colonoscopy (02/10/2017 9:53 AM EDT) us Historical Provider HEALTH MAINTENANCE Final Result documented in this encounter Visit Diagnoses Not on filedocumented in this encounter Additional Health Concerns Assessment Noted Time PHQ-9 Depression Total Score: 0 06/23/19 23 10:25 AM EST documented as of this encounter Care Teams Deputy Commissioner Relationship Specialty Start Date End Date Rene Butcher MD 505 [place] [address] PCP - General Internal Medicine 10/23/19 documented as of this encounter
--- OUTSIDE RECORDS SUMMARY | 2025-03-09 12:51 | XMS_ITS | Encounter Summary ---
Author Organization [employer] Address 75 [facility] 7 [place] [address] Care Team Providers Care Telephone Answerer Name Role Phone Rene Butcher MD Primary Care Prov ider Reason for Visit * Reason Onset Date Comments requesting a call back 06/02/2022 Encounter Details Date Type Department Care Team ([facility] Contact Info) Description 06/02/2022 Telephone [facility] MEDICINE [address] [place] [address] Rene Butcher MD 505 [place] [address] requesting a call back Social History Tobacco Use Types Packs/Day Years Used Date Smoking Tobacco: Never Assessed Comments Unknown Sex and Gender Information Value Date Recorded Sex Assigned at Female 03/24/2022 10:29 AM EDT Legal Sex Female 10:29 AM EDT Gender Identity Female 03/24/2022 10:29 AM EDT Sexual Orientation Don't know 03/24/2022 10 :29 AM EDT documented as of this encounter Miscellaneous Notes * Telephone Encounter - Kristi Granda RN - 06/04/2022 9:51 AM EST Please see message and return pt's call. Thanks * Telephone Encounter - Isra Brink - 06/02/2022 12:52 PM EST Tc from pt returning call. Pt is requesting a call back Please contact pt at [phone] documented in this encounter Plan of Treatment Upcoming Encounters Date Type Department Care Team (Late st Contact Info) Description 03/13/2025 10:30 AM EDT Clinical Support [facility] MED & PEDS [address] [place], [place] [phone] 03/14/2025 11:00 AM EDT Office Visit [facility] ADULT DENTAL [address] [place], [place] [phone] Donnie Quevedo, DMD 505 [place], [place] [phone] 07/04/2025 2:00 PM EST Office Visit [facility] OPTOMETRY 267 [place], [place] [phone] Merissa Thomas, OD 267 [place] [address] documented as of this encounter Visit Diagnoses Not on filedocumented in this encounter Care Teams Telephone Answerer Relationship Specialty Start Date End Date Rene Butcher MD 505 [place], [place] [phone] PCP - General Internal Medicine 10/23/19 documented as of this encounter
--- OUTSIDE RECORDS SUMMARY | 2025-03-09 12:51 | XMS_ITS | Encounter Summary ---
Author Organization [employer] Address [address] [facility] 7t [place] [address] Care Team Providers Care Pipe Fitter Ammonia Name Role Phone Rene Butcher MD Primary Care Prov ider Reason for Visit * Reason Onset Date Comments Medication Question 03/11/2024 Encounter Details Date Type Department Care Team ([facility] Contact Info) Description 03/11/2024 Telephone [facility] MEDICINE [address] [place] [address] Rene Butcher MD [address] [facility] [address] [place], [place] [phone] Medication Question Social History Tobacco Use Types [...] encounter Miscellaneous Notes * Telephone Encounter - Heber Zhou - 03/11/2024 9:44 AM EDT Tc from patient calling to request for some medications hydrOXYzine HCl (Atarax) 25 MG tablet and PARoxetine (Paxil) 40 MG tablet states insurance is not active but is in need of medication patient also stated is already in the process of renewing insurance documented in this encounter Plan of Treatment Upcoming Encounters Date Type Department Care Team (Late st Contact Info) Description 03/13/2025 10:30 AM EDT Clinical Support [facility] MED & PEDS 505 [place] [address] 03/14/2025 11:00 AM EDT Office Visit [facility] ADULT DENTAL 505 [place] [address] Donnie Quevedo, GAURAV 505 [place] [address] 07/04/2025 2:00 PM EST Office Visit [facility] OPTOMETRY [address] [place] [address] Tarka, Merissa, OD [address] [place] [address] documented as of this encounter Visit Diagnoses Not on filedocumented in this encounter Additional Health Concerns Assessment Noted Time PHQ-9 Depression Total Score: 0 06/23/19 23 10:25 AM EST documented as of this encounter Care Teams Pipe Fitter Ammonia Relationship Specialty Start Date End Date Rene Butcher MD 505 [place] [address] PCP - General Internal Medicine 10/23/19 documented as of this encounter
--- OUTSIDE RECORDS SUMMARY | 2025-03-09 12:52 | XMS_ITS | Encounter Summary ---
Author Organization [employer] Address [address] [facility] [address] 7t [place] [address] Care Team Providers Care Subcontract Manager Name Role Phone Rene Butcher MD Primary Care Prov ider Encounter Details Date Type Department Care Team (Latest Contact Info) Description 03/06/2025 Travel Social History Tobacco Use Types Packs/Day Years [...] Description 03/13/2025 10:30 AM EDT Clinical Support [facility] MED & PEDS 505 [place] [address] 03/14/2025 11:00 AM EDT Office Visit [facility] ADULT DENTAL 505 [place] [address] Donnie Quevedo, DMD 505 [place] [address] 07/04/2025 2:00 PM EST Office Visit [facility] OPTOMETRY [address] [place] [address] Tarka, Merissa, OD [address] [place] [address] documented as of this encounter Visit Diagnoses Not on filedocumented in this encounter Additional Health Concerns Assessment Noted Time PHQ-9 Depression Total Score: 4 04/05/20 24 11:56 AM EST documented as of this encounter Care Teams Subcontract Manager Relationship Specialty Start Date End Date Rene Butcher MD 505 [place] [address] PCP - General Internal Medicine 10/23/19 documented as of this encounter
--- OUTSIDE RECORDS SUMMARY | 2025-03-09 12:52 | XMS_ITS | Encounter Summary ---
Author Organization [employer] Address [address] [facility] 7 [place] [address] Care Team Providers Care Erection Shop Supervisor Name Role Phone Rene Butcher MD Primary Care Prov ider Reason for Visit * Reason Onset Date Comments chart prep 03/07/2025 Encounter Details Date Type Department Care Team ([facility] Contact Info) Description 03/07/2025 Telephone [facility] CHC MED & PEDS [address] [place] [address] Rene Butcher MD 505 [place] [address] chart prep Social History Tobacco Use Types Packs/Day Years [...] encounter Miscellaneous Notes * Telephone Encounter - Elsa Zhou MA - 03/07/2025 9:52 AM EDT Chart Prep Labs: done Images: not done Referrals: not applicable Vaccines due: Covid and Flu Screenings: mammogram Overdue care gaps: Not applicable documented in this encounter Plan of Treatment Upcoming Encounters Date Type Department Care Team (Late st Contact Info) Description 03/13/2025 10:30 AM EDT Clinical Support [facility] MED & PEDS [address] [place] [address] 03/14/2025 11:00 AM EDT Office Visit [facility] ADULT DENTAL 505 [place] [address] Donnie Quevedo, GAURAV 505 [place] [address] 07/04/2025 2:00 PM EST Office Visit [facility] OPTOMETRY [address] [place] [address] Merissa Thomas, OD [address] [place] [address] documented as of this encounter Visit Diagnoses Not on filedocumented in this encounter Additional Health Concerns Assessment Noted Time PHQ-9 Depression Total Score: 4 04/05/20 24 11:56 AM EST documented as of this encounter Care Teams Erection Shop Supervisor Relationship Specialty Start Date End Date Rene Butcher MD [address] [place] [address] PCP - General Internal Medicine 10/23/19 documented as of this encounter
--- OUTSIDE RECORDS SUMMARY | 2025-03-09 12:52 | XMS_ITS | Encounter Summary ---
Author Organization [employer] Address 75 [facility] 7t [place] [address] Care Team Providers Care Wire Weaver Cloth Name Role Phone Rene Butcher MD Primary Care Prov ider Encounter Details Date Type Department Care Team ([facility] Contact Info) Description 03/06/2025 Telephone C [facility] MED & PEDS 505 [place], [place] [phone] Rene Butcher MD 505 [place] [address] Social History Tobacco Use Types Packs/Day Years [...] t he electric, gas, oil or water [employer] threatened to shut off services in your [...] encounter Miscellaneous Notes * Telephone Encounter - Polly Raygoza - 03/06/2025 8:59 AM EDT Lvm provider out, appointment cancelled, if pt calls back ok for call center to jack documented in this encounter Plan of Treatment Upcoming Encounters Date Type Department Care Team (Late st Contact Info) Description 03/13/2025 10:30 AM EDT Clinical Support [facility] MED & PEDS 505 [place] [address] 03/14/2025 11:00 AM EDT Office Visit [facility] ADULT DENTAL 505 [place] [address] Donnie Quevedo, DMD 505 [place] [address] 07/04/2025 2:00 PM EST Office Visit [facility] OPTOMETRY [address] [place] [address] TarkaMerissa, OD [address] [place] [address] documented as of this encounter Visit Diagnoses Not on filedocumented in this encounter Additional Health Concerns Assessment Noted Time PHQ-9 Depression Total Score: 4 04/05/20 24 11:56 AM EST documented as of this encounter Care Teams Wire Weaver Cloth Relationship Specialty Start Date End Date Rene Butcher MD [address] [employer] [address], [place] [address] PCP - General Internal Medicine 10/23/19 documented as of this encounter
--- OUTSIDE RECORDS SUMMARY | 2025-03-09 12:52 | XMS_ITS | Encounter Summary ---
Author Organization [employer] Address [address] [facility] 7 [place] [address] Care Team Providers Care Silica Filter Operator Name Role Phone Rene Butcher MD Primary Care Prov ider Reason for Visit * Reason Onset Date Comments Nurse Triage 03/16/2023 Encounter Details Date Type Department Care Team ([facility] Contact Info) Description 03/16/2023 Telephone [facility] CHC MED & PEDS [address] [place], [place] [phone] Rene Butcher MD [address] [place] [address] Nurse Triage Social History Tobacco Use Types Packs/Day Years [...] encounter Miscellaneous Notes * Telephone Encounter - Natalia Menchaca RN - 03/16/2023 4:14 PM EDT T/C to pt who is requesting her televisit on 03/08/23 to be changed to in person. Pt states that for the past few months she has been having increased stress levels due to her son being Diagnosed with Bipolar disorder. Pt states that at times of stress she sometimes experiences SOB, sometimes with chest pain, headache and dizziness. Pt denies any of these symptoms at this time, and states that symptoms are always associated with stress. RN advises pt that if she experiences these symptoms she should go to the emergency room. RN spoke with Dr. Gina STRICKLAND who offered pt a sooner appointmentwith Dr. Rouse via televisit tomorrow or an in person visit tomorrow with Dr. Rojas. Pt decl liya in person visit due to works schedule and will instead have a televisit with Dr. Rouse tomorrow at 3:30pm. RN also left a message with [facility] behavioral health for a BE with patient. * Telephone Encounter - Yanique Smith - 03/16/2023 3:34 PM EDT Symptom: Breathing Trouble Outcome: Schedule an urgent appointment (within 1 hour) or talk to a nurse or provider soon Reason: Caller denied all higher acuity questions The caller accepted this outcome Please contact pt at [phone] Serbian Speaker documented in this encounter Plan of Treatment Upcoming Encounters Date Type Department Care Team (Late st Contact Info) Description 03/13/2025 10:30 AM EDT Clinical Support [facility] MED & PEDS [address] [place], [place] [phone] 03/14/2025 11:00 AM EDT Office Visit [facility] ADULT DENTAL [address] [place], [place] [phone] Donnie Quevedo, DMD 505 [place], [place] [phone] 07/04/2025 2:00 PM EST Office Visit [facility] OPTOMETRY [address] [place], [place] [phone] TarkaMerissa, OD [address] [place] [address] documented as of this encounter Visit Diagnoses Not on filedocumented in this encounter Additional Health Concerns Assessment Noted Time PHQ-9 Depression Total Score: 0 06/23/19 23 10:25 AM EST documented as of this encounter Care Teams Silica Filter Operator Relationship Specialty Start Date End Date Rene Butcher MD [address] [place] [address] PCP - General Internal Medicine 10/23/19 documented as of this encounter
== END 2025-03-09 10:25 | disposition home or self-care (01) ==
LOC: HO.CT 10:24
PROVIDERS: PCP Internal Medicine; Visit Provider Internal Medicine
DX: G44.89 Other headache syndrome (principal); M54.50 Low back pain, unspecified
CPT/HCPCS: 70450; 72100

== ENCOUNTER → 2025-03-09 10:25 | Outpatient (BNV) | payer MEDICARE, SELFPAY | PROVIDERS: PCP Internal Medicine; Visit Provider Radiology Diagnostic Radiology | DX: G44.309 Post-traumatic headache, unspecified, not intractable (principal); M51.360 Other intervertebral disc degeneration, lumbar region with discogenic back pain only; M85.88 Other specified disorders of bone density and structure, other site | CPT/HCPCS: 70450; 72100 ==